=== PATIENT | male | born 1970 | race Caucasian/White ===

== ENCOUNTER 2017-09-11 11:02 | Day surgery (SDC) | payer BC ==
[2017-09-03 08:50] VITALS: Ht 180.3 cm; Wt 94.3 kg
--- NOTE | 2017-09-03 09:26 | PAT Medication Instructions ---
Service Date Sep 03, 2017. Current Home Medication List Acetaminophen (Acetaminophen Extra Stren), 1 TAB PO DAILY PRN for Pain or Fever Allopurinol (Zyloprim), 300 MG PO QAM Beclomethasone Dipropionate (N (Qnasl), 2 SPRY JUAN A BID Krill Oil (Krill Oil 500 mg), 1 CAP PO QAM Losartan Potassium (Cozaar), 1 TAB PO QAM Omeprazole (Prilosec), 40 MG PO QAM Probiotic Product (Align), 1 TAB PEG BID Triamcinolone Acet (Triamcinolone Acetonide), 1 APPLN TOP DAILY PRN for Affected Skin Folds [juice plus vitamins], 1 DOSE PO TID Medication Instructions For Your Scheduled Surgery - Hold the following medications starting 09/03/17: Krill Oil (Krill Oil 500 mg), 1 CAP PO QAM [juice plus vitamins], 1 DOSE PO TID - Hold the following medications 24 hours prior to surgery: Triamcinolone Acet (Triamcinolone Acetonide), 1 APPLN TOP DAILY PRN for Affected Skin Folds - Hold the following medications the morning of surgery: Losartan Potassium (Cozaar), 1 TAB PO QAM Probiotic Product (Align), 1 TAB PEG BID - Take the following medications the morning of surgery with a sip of water: Omeprazole (Prilosec), 40 MG PO QAM Beclomethasone Dipropionate (N (Qnasl), 2 SPRY JUAN A BID Allopurinol (Zyloprim), 300 MG PO QAM Acetaminophen (Acetaminophen Extra Stren), 1 TAB PO DAILY PRN for Pain or Fever (okay to take up to 4 hours prior to surgery if needed) - Take the following medications as scheduled the night before surgery: Probiotic Product (Align), 1 TAB PEG BID Beclomethasone Dipropionate (N (Qnasl), 2 SPRY JUAN A BID Acetaminophen (Acetaminophen Extra Stren), 1 TAB PO DAILY PRN for Pain or Fever (if needed) If you have any questions please call us at [phone] or [phone] or [phone]
[2017-09-03 10:03] LABS: BASO % 0.5 %; BASO ABS # 0.04 K/uL (0-0.2); EOS % 3.4 %; EOS ABS # 0.25 K/uL (0-0.5); HEMATOCRIT 44.9 % (42-52); HEMOGLOBIN 15.8 g/dL (14.0-18.0); IG# 0.03 K/uL (0.00-0.02); LYMPH % 22.4 %; LYMPH ABS # 1.66 K/uL (1.2-3.4); MEAN CELL VOLUME 88.2 fL (80-100); MEAN CORPUSCULAR HGB CONC 35.2 g/dl (32-36); MEAN PLATELET VOLUME 10.3 fL (7.4-10.4); MONO % 8.4 %; MONO ABS # 0.62 K/uL (0.11-0.59); NEUT % 64.9 %; NEUT ABS # 4.81 K/uL (1.4-6.5); PLATELET COUNT 237 K/uL (130-400); RED CELL DISTRIBUTION WIDTH CV 12.8 % (11.5-14.5); RED CELL DISTRIBUTION WIDTH SD 41.5 fL (36.4-46.3); WHITE BLOOD COUNT 7.41 K/uL (4.8-10.8)
[2017-09-03 10:20] LABS: BLOOD UREA NITROGEN 17 mg/dl (7-18); CALCIUM 9.2 mg/dl (8.5-10.1); CARBON DIOXIDE 26 mmol/L (21-32); CREATININE 1.07 mg/dl (0.60-1.40); GLUCOSE 135 mg/dl (70-99); POTASSIUM 4.4 mmol/L (3.5-5.1); SODIUM 136 mmol/L (136-145)
[~2017-09-11] VITALS: Ht 180.3 cm; Wt 94.3 kg
[~2017-09-11 11:02] MED LIST: ACET-1222 PO; ALLO300T2 PO; BECL1AER5 NAE; CEFAZOLIN 2000MG IV PUSH 10 ML IV SCH; KRIL1CAP24 PO; LACTATED RINGER'S 1000ML 1,000 ML IV SCH; LOSA50TA54 PO; MISC4CAP PO; SCOPOLAMINE 1.5 MG TDSY TD SCH; TRMCR515 TOP; juice plus vitamins PO
[2017-09-11 11:35] VITALS: BP 153/87; PULSE 95; TEMP 36.6; O2SAT 98
[2017-09-11] MEDS ORDERED: PROPOFOL IV EMULSION 10 MG/ML 20 ML VIAL IV ONE ×2 (11:56→14:21)
[2017-09-11] MEDS ORDERED: FENTANYL CITRATE INJ 50 MCG/1 ML 2 ML VIAL ONE ×3 (11:57→15:24)
[2017-09-11] MEDS ORDERED: MIDAZOLAM HCL 1 MG/ML 2ML VIAL ONE (11:58)
[2017-09-11] MEDS ORDERED: BUPIVACAINE/EPINEPHRINE 0.5% MPF 1:200,000 30 ML VIAL ONE (12:47)
--- NOTE | 2017-09-11 12:49 | History and Physical ---
History & Physical Date Sep 11, 2017. Chief Complaint Sleep apnea History of Present Illness The patient is a 47 year old male with complaints of sleep apnea and inability to tolerate CPAP Past Medical/Surgical History Medical Problems: (1) Appendectomy (2) Borderline hyperlipidemia (3) Borderline hypertension (4) Pneumonia (5) Vasectomy with reversal Additional History Hepatic Disease: No Endocrine Disorder: No Kidney Disease: No Hypertension: No Heart Disease: No Bleeding Tendencies: No Infectious Diseases: No Allergies Coded Allergies: No Known Allergies (Unverified , 09/11/17) Home Medications Scheduled Allopurinol (Zyloprim), 300 MG PO QAM Beclomethasone Dipropionate (N (Qnasl), 2 SPRY JUAN A BID Krill Oil (Krill Oil 500 mg), 1 CAP PO QAM Losartan Potassium (Cozaar), 1 TAB PO QAM Omeprazole (Prilosec), 40 MG PO QAM Probiotic Product (Align), 1 TAB PEG BID [juice plus vitamins], 1 DOSE PO TID Scheduled PRN Acetaminophen (Acetaminophen Extra Stren), 1 TAB PO DAILY PRN for Pain or Fever Triamcinolone Acet (Triamcinolone Acetonide), 1 APPLN TOP DAILY PRN for Affected Skin Folds Physical Examination Skin: warm/dry, no rash Eyes: normal inspection, EOMI, sclerae normal ENT: normal ENT inspection, pharynx normal Head: normocephalic, atraumatic Neck: supple, no adenopathy, trachea midline Respiratory/Chest: lungs clear, normal breath sounds, no respiratory distress Cardiovascular: regular rate, rhythm, no edema, no murmur Abdomen / GI: normal bowel sounds, non tender Back: normal inspection Extremities: normal inspection, normal range of motion Neurologic/Psych: no motor/sensory deficits, alert, normal reflexes, oriented x 3 Diagnosis Obstructive sleep apnea Plan of Treatment For tonsillectomy with uvulopalatopharyngoplasty
[2017-09-11] MEDS ORDERED: DEXAMETHASONE SOD INJ 4 MG/ML VIAL ONE (13:43)
[2017-09-11] MEDS ORDERED: ONDANSETRON INJ 2 MG/ML 2 ML VIAL ONE (13:43)
[2017-09-11] MEDS ORDERED: ROCURONIUM BROMIDE 10 MG/ML 5 ML VIAL IV ONE (13:47)
[2017-09-11] MEDS ORDERED: GLYCOPYRROLATE INJ 0.2 MG/ML VIAL ONE (14:06)
[2017-09-11] MEDS ORDERED: NEOSTIGMINE METHYLSULFATE 5 MG/5 ML SYR ONE (14:07)
[2017-09-11] MEDS ORDERED: SODIUM CHLORIDE 0.9% 1000ML 1,000 ML IV SCH (15:01)
--- NOTE | 2017-09-11 15:05 | [facility] Operative Report ---
Operative Report Operative Date Sep 11, 2017. Pre-Operative Diagnosis Obstructive Sleep Apnea Post-Operative Diagnosis same as preop Procedure(s) Performed Uvulopalatalpharyngoplasty; Tonsillectomy Surgeon Dr. Tiffanie Cao [facility] Social Worker Surgeon(s) N/A Estimated Blood Loss 25mL Findings Large tonsils Specimens A. Uvula and right tonsil B. Left tonsil Anesthesia Gen. endotracheal Complication(s) None Disposition Recovery Room / PACU Indications 47-year-old gentleman with sleep apnea unable to tolerate CPAP Description of Procedure The patient was brought to the operating room and placed in the supine position and prepped and draped in the usual sterile manner after general endotracheal anesthesia. The mouth gag was placed the peritonsillar area were injected with 0.5% Sensorcaine with 1-200,000 strength epinephrine. Tonsillectomies were performed using the plasma knife. The uvula and a portion of the soft palate was resected using the #12 blade and the Metzenbaum scissors preserving the posterior half of the uvula. A the cut was placed in the palatoglossus glosses fold and a flap was cut into the palatopharyngeus fold. The flap was rotated laterally into the V-cut. All the mucosal edges were closed using 2-0 chromic sutures sewing the uvula up onto itself and securing the rotation flap laterally. The pharynx was irrigated clean with saline the patient her procedure well was taken to recovery area in satisfactory condition I attest to the content of the Intraoperative Record and any orders documented therein. Any exceptions are noted below.
[2017-09-11] MEDS ORDERED: HYDR1SOL28 PO (15:06)
[2017-09-11] MEDS ORDERED: OXYC-57 PO (15:07)
--- NOTE | 2017-09-11 15:08 | Discharge Instructions ---
Discharge Instructions Date of Service Sep 11, 2017. Admission Reason for Admission: Sleep Apnea Discharge Discharge Diagnosis / Problem: same Discharge Goals Goal(s): Improve function Activity Recommendations Activity Limitations: per Instructions/Follow-up section . Instructions / Follow-Up Instructions / Follow-Up ACTIVITY RECOMMENDATIONS: * During the first few days, activities should be limited. * Stay indoors for several days. * After 48 hours, activity can gradually be increased to normal activity. RETURN TO SCHOOL/WORK: * Return to school or work in one week. * No physical education for two weeks. OVER THE COUNTER MEDICATIONS: * You may use Tylenol * Avoid aspirin or aspirin containing products, e.g. as they may increase bleeding. SPECIAL CARE INSTRUCTIONS: * Avoid coughing or clearing the throat. * Do not use a straw. * A sore throat is expected frequently accompanied by pain radiating to the ears. This is normal. * Expect bad breath until "scabs" are healed. * Notify the doctor if bleeding occurs, vomiting, temperature greater than 101 degrees Fahrenheit. Call or cell phone: . * If bleeding occurs, it is usually in the first 24 hours or after the 5th day. If unable to reach the doctor, go to the nearest Emergency Department. Special Diet: * Fluids are very important and should be encouraged to maintain adequate hydration. * To maintain nutrition, eat soft foods and after 48 hours the consistency of foods can be increased. Examples are jello, soup, pasta, ice cream and mashed foods. FOLLOW UP VISIT: Follow-up visit with Dr. Cao in 2 weeks. Please call to schedule if not already scheduled. Current Hospital Diet Patient's current hospital diet: Discharge Diet Recommended Diet: Regular Diet Diet Texture: Mechanical Soft (ground) Procedures Procedures Performed: Uvulopalatalpharyngoplasty; Tonsillectomy Pending Studies Studies pending at discharge: no Medical Emergencies . Who to Call and When: Medical Emergencies: If at any time you feel your situation is an emergency, please call [phone] immediately. . Non-Emergent Contact Non-Emergency issues call your: Primary Care Provider . "Provider Documentation" section prepared by Tiffanie Cao. . VTE Core Measure Inpt VTE Proph given/why not?: SCD's [place] Drug Monitoring Program Search Results: no issues identified
[2017-09-11] MEDS ORDERED: ONDANSETRON INJ 2 MG/ML 2 ML VIAL IV PRN ×2 (15:15→15:30)
[2017-09-11] MEDS ORDERED: MoRPHine SULFATE 2 MG/ML CARP IV PRN (15:15)
[2017-09-11] MEDS ORDERED: ACETAMINOPHEN/HYDROCODONE ELIX 15 ML/CUP UDP PO PRN (15:15)
[2017-09-11] MEDS: FENTANYL CITRATE INJ 50 MCG/1 ML 2 ML VIAL IV PRN ×2 (15:27→15:33)
[2017-09-11] MEDS ORDERED: LABETALOL HCL IV 5 MG/ML 20ML IV PRN (15:30)
[2017-09-11] MEDS ORDERED: ATROPINE SULFATE 0.1 MG/ML 5ML SYR IV PRN (15:30)
--- NOTE | 2017-09-11 15:51 | Anesthesiology Progress Note ---
Anesthesia Post Op Note Date & Time Sep 11, 2017 at 15:51 Vital Signs Pain Intensity: 4 Vital Signs Past 12 Hours Date Time Temp Pulse Resp B/P (MAP) Pulse Ox O2 Delivery O2 Flow Rate FiO2 09/11/17 15:40 36.4 71 16 159/93 97 Nasal Cannula 2 09/11/17 15:30 72 15 152/93 97 Nasal Cannula 2 09/11/17 15:25 73 16 147/91 97 Oxymask 8 09/11/17 15:15 76 18 142/93 97 Oxymask 8 09/11/17 15:05 83 16 139/83 96 Oxymask 8 09/11/17 14:59 36.3 86 16 148/86 97 Oxymask 8 09/11/17 11:35 36.6 95 20 153/87 (109) 98 Room Air Notes Mental Status: alert / awake / arousable, participated in evaluation Pt Amnestic to Procedure: Yes Nausea / Vomiting: adequately controlled Pain: adequately controlled Airway Patency, RR, SpO2: stable & adequate BP & HR: stable & adequate Hydration State: stable & adequate Anesthetic Complications: no major complications apparent
[2017-09-11 15:55] VITALS: BP 151/86; PULSE 78; TEMP 37; O2SAT 95
[2017-09-11] MEDS ORDERED: CHECK SCOPOLAMINE PATCH PLACEMENT SCH (16:00)
[2017-09-11 16:25] VITALS: BP 166/94; PULSE 89; O2SAT 93
[2017-09-11 16:55] VITALS: BP 152/88; PULSE 86; TEMP 36.8; O2SAT 94
[2017-09-11 17:25] VITALS: BP 158/92; PULSE 80; TEMP 36.8; O2SAT 95
[2018-01-08] MEDS ORDERED: PRLSR20 PO (09:09)
== END 2017-09-11 17:43 | disposition home or self-care (01) ==
LOC: C.ACU 11:02
PROVIDERS: ATTEND Otolaryngology
DX: J35.1 Hypertrophy of tonsils (principal); I10 Essential (primary) hypertension; K21.9 Gastro-esophageal reflux disease without esophagitis; E66.9 Obesity, unspecified; Z68.39 Body mass index [BMI] 39.0-39.9, adult; M10.9 Gout, unspecified; Z79.899 Other long term (current) drug therapy

== ENCOUNTER 2017-09-22 02:04 | Emergency (ER) | payer BC ==
[~2017-09-22] VITALS: Ht 180.3 cm; Wt 90.8 kg
[~2017-09-22 02:04] MED LIST changes: -CEFAZOLIN 2000MG IV PUSH 10 ML IV SCH; +HYDR1SOL10 PO; -LACTATED RINGER'S 1000ML 1,000 ML IV SCH; +MISC4CAP PEG; -MISC4CAP PO; +OXYC-57 PO; +PRLSR20 PO; -SCOPOLAMINE 1.5 MG TDSY TD SCH
[2017-09-22 02:10] VITALS: Ht 180.3 cm; Wt 90.8 kg
--- NOTE | 2017-09-22 02:29 | EMERGENCY ROOM VISIT NOTE ---
History Report prepared by Mary: Manfred Toscano Under the Supervision of: Dr. Kathi Hood D.O. First contact with patient: 02:15 Chief Complaint: THROAT PAIN/INJURY Stated Complaint: BLEEDING S/P TONSILLECTOMY ON 09.11.17 History of Present Illness The patient is a 47 year old male who presents to the Emergency Room with complaints of discomfort and bleeding in his throat that he began to experience just prior to arrival. The patient had a tonsillectomy on 09/11, 11 days prior to arrival. He notes that he did not have any unusual difficulties/complications following the procedure. When he woke up this morning he felt like he was swallowing large amounts of blood. He denies any breathing difficulties or nausea from swallowing blood. He also denies any reflux or indigestion. The patient is not on any blood thinners and has not been using any pain medications. Source of History: patient Onset: Just prior to arrival Position: throat Quality: other (Bleeding) Associated Symptoms: No nausea Review of Systems See HPI for pertinent positives & negatives. A total of 6 systems reviewed and were otherwise negative. Past Medical & Surgical Medical Problems: (1) Appendectomy (2) Borderline hyperlipidemia (3) Borderline hypertension (4) Pneumonia (5) Vasectomy with reversal Family History No pertinent family history secondary to case specifics. Social History Smoking Status: Never Smoker Marital Status: Housing Status: lives with significant other Occupation Status: employed Current/Historical Medications Scheduled Allopurinol (Zyloprim), 300 MG PO QAM Beclomethasone Dipropionate (N (Qnasl), 2 SPRY JUAN A BID Krill Oil (Krill Oil 500 mg), 1 CAP PO QAM Losartan Potassium (Cozaar), 1 TAB PO QAM Omeprazole (Prilosec), 40 MG PO QAM Probiotic Product (Align), 1 TAB PEG BID [juice plus vitamins], 1 DOSE PO TID Scheduled PRN Acetaminophen (Acetaminophen Extra Stren), 1 TAB PO DAILY PRN for Pain or Fever Hydrocodone-Acetaminophen (Hydrocodone/Acetami 7.5/325MG 15ML), 15 ML PO Q4H PRN Oxycodone/Acetaminophen 5MG/325MG (Percocet 5MG/325MG), 1-2 TABLETS PO Q4H PRN for Pain Triamcinolone Acet (Triamcinolone Acetonide), 1 APPLN TOP DAILY PRN for Affected Skin Folds Allergies Coded Allergies: No Known Allergies (Unverified , 09/22/17) Physical Exam Vital Signs Date Time Temp Pulse Resp B/P (MAP) Pulse Ox O2 Delivery O2 Flow Rate FiO2 09/22/17 04:22 80 18 124/72 97 09/22/17 02:32 Room Air 96 09/22/17 02:10 88 20 148/95 97 Room Air Physical Exam GENERAL: alert, well appearing, well nourished, no distress, non-toxic EYE EXAM: normal conjunctiva, PERRL and EOM's grossly intact OROPHARYNX: buccal mucosa, and tongue normal and mucous membranes are moist. No mucocutaneous lesions present. Uvula midline. Patient with evidence of recent tonsillectomy and bilateral eschar and scarring of the posterior oropharynx. Scant blood noted. No active bleeding from the tonsillectomy sites. NECK: supple, no nuchal rigidity, no adenopathy, non-tender LUNGS: Clear to auscultation. Normal chest wall mechanics HEART: no murmurs, S1 normal and S2 normal ABDOMEN: abdomen soft, non-tender, normo-active bowel sounds, no masses, no rebound or guarding. SKIN: no rashes and no bruising UPPER EXTREMITIES: upper extremities are grossly normal. Nml pulses. Nml ROM. LOWER EXTREMITIES: No pitting edema. Nml ROM, nml pulses. NEURO EXAM: Normal sensorium, cranial nerves II-XII [grossly] intact, normal speech, no [gross] weakness of arms, no [gross] weakness of legs Medical Decision & Procedures Medications Administered Medications (Trade) Dose Ordered Sig/Melanie Route Start Time Stop Time Status Last Admin Dose Admin Ondansetron HCl (ZOFRAN ODT 4MG Home Pack) 1 homepack UD ONCE PO 09/22/17 03:45 09/22/17 03:47 DC 09/22/17 04:04 1 HOMEPACK Ondansetron HCl (Zofran Odt) 4 mg STK-MED ONCE .ROUTE 09/22/17 04:07 09/22/17 04:08 DC 09/22/17 04:09 4 MG ED Course 0219: The patient was evaluated in room B4B. A complete history and physical exam was performed. 0333: I checked on the patient at this time. He was doing well. He is not swallowing any more blood. 0345: Ordered Zofran homepack 1 PO. 0403: Upon reevaluation, the patient is feeling better. I discussed the findings and the treatment plan with the patient. He verbalizes agreement and understanding. The patient was discharged home. 0407: Ordered Zofran 4 mg Medical Decision Differential Diagnosis include; Post tonsillectomy complication, mucositis, pharyngitis, peritonsillar abscess, epistaxis. Impression Primary Impression: Post-tonsillectomy hemorrhage Scribe Attestation The scribe's documentation has been prepared under my direction and personally reviewed by me in its entirety. I confirm that the note above accurately reflects all work, treatment, procedures, and medical decision making performed by me. Departure Information Dispostion Home / Self-Care Referrals Akanksha Gonzalez C.R.N.P. (PCP) Patient Instructions My [facility] Additional Instructions Please continue your instructions is given you following your surgery. If you think your beginning to have any rebleeding, please gargle with ice water or begin eating ice chips. If you have any recurrent or worsening bleeding, feel as they you can't breathe, have difficulty swallowing, worsening pain with swallowing, no swelling of your tongue, notice other sores or ulcerations in her mouth, develop fevers or chills, you've any other new concerns, please return the emergency room.
[2017-09-22] MEDS ORDERED: ONDANSETRON HOME PACK 4MG OD TAB PO ONE (03:45)
[2017-09-22] MEDS ORDERED: ONDANSETRON 4MG OD TAB ONE (04:07)
[2017-09-22 04:22] VITALS: BP 124/72; PULSE 80; O2SAT 97
== END 2017-09-22 04:24 | disposition home or self-care (01) ==
LOC: C.EDB 02:06
DX: J95.830 Postprocedural hemorrhage of a respiratory system organ or structure following a respiratory system procedure (principal); Z90.89 Acquired absence of other organs; Z87.01 Personal history of pneumonia (recurrent)

== ENCOUNTER 2018-01-08 11:51 | Emergency (ER) | payer BC, OTHER ==
[~2018-01-08] VITALS: Ht 177.8 cm; Wt 93.5 kg
[~2018-01-08 11:51] MED LIST changes: -MISC4CAP PEG; +MISC4CAP PO
[2018-01-08 11:59] VITALS: TEMP 36.6; Ht 177.8 cm; Wt 93.5 kg
[2018-01-08] MEDS ORDERED: CZR25 PO (12:17)
[2018-01-08] MEDS ORDERED: ACETAMINOPHEN 500 MG TAB PO STA (12:52)
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
[2018-01-08 14:38] VITALS: BP 152/81; PULSE 62; O2SAT 97
== END 2018-01-08 14:48 | disposition home or self-care (01) ==
LOC: C.EDB 11:52 → C.EDD 14:48
DX: S09.90XA Unspecified injury of head, initial encounter (principal); S16.1XXA Strain of muscle, fascia and tendon at neck level, initial encounter; V43.52XA Car driver injured in collision with other type car in traffic accident, initial encounter; Y93.89 Activity, other specified; Y99.8 Other external cause status; Y92.410 Unspecified street and highway as the place of occurrence of the external cause; R03.0 Elevated blood-pressure reading, without diagnosis of hypertension; Z87.01 Personal history of pneumonia (recurrent); Z90.89 Acquired absence of other organs